=== PATIENT | female | born 1990 | race Caucasian/White ===

== ENCOUNTER 2017-06-25 00:03 | Outpatient (CLI) | payer OTHER ==
[~2017-06-25] VITALS: Ht 167.6 cm; Wt 97.5 kg
== END 2017-06-25 13:00 | disposition designated cancer center or children's hospital (05) ==
LOC: ER 00:03 → LDR 04:44 → ER 04:44 → OB/GYN 04:44 → OBS/DEL 07:00 → OB/GYN 08:05 → LDR 08:05 → OB/GYN 08:05 → EDSTATUS 12:10 → OBS/DEL 13:00 → OB/GYN 19:06
DX: O46.8X2 Other antepartum hemorrhage, second trimester (principal); Z34.82 Encounter for supervision of other normal pregnancy, second trimester

== ENCOUNTER → 2017-11-24 | Outpatient (CLI) | payer OTHER | END | disposition home or self-care (01) | LOC: NST 22:04 | DX: Z34.83 Encounter for supervision of other normal pregnancy, third trimester (principal) ==

== ENCOUNTER 2017-12-10 13:00 | Inpatient (IN) | payer OTHER ==
[~2017-12-10] VITALS: Ht 167.6 cm; Wt 108.9 kg
[2017-12-17] MEDS ORDERED: PRENATAL FORMU1 EAC1 PO (14:19)
[2017-12-17] MEDS ORDERED: IRON325 MG PO (14:19)
== END 2017-12-19 15:10 | disposition home or self-care (01) | DRG 775 ==
LOC: OB/GYN 12-17 12:07 → LDR 12-17 12:07 → OB/GYN 12-18 06:40
PROC: 10E0XZZ Delivery of Products of Conception, External Approach (ICD-10-PCS; principal; 2017-12-17)
PROC: 0HQ9XZZ Repair Perineum Skin, External Approach (ICD-10-PCS; 2017-12-17)
PROC: 3E033VJ Introduction of Other Hormone into Peripheral Vein, Percutaneous Approach (ICD-10-PCS; 2017-12-17)
PROC: 4A1HXCZ Monitoring of Products of Conception, Cardiac Rate, External Approach (ICD-10-PCS; 2017-12-17)
DX: O70.0 First degree perineal laceration during delivery (principal); O99.824 Streptococcus B carrier state complicating childbirth; Z3A.38 38 weeks gestation of pregnancy; Z37.0 Single live birth

== ENCOUNTER 2021-10-04 22:26 | Emergency (ER) | payer OTHER ==
[~2021-10-04] VITALS: Ht 167.6 cm; Wt 108.9 kg
[~2021-10-04 22:26] MED LIST: IRON325 MG PO; PRENATAL FORMU1 EAC1 PO
[2021-10-05] MEDS ORDERED: INTEGRA PLUS C1 EACH PO (04:43)
== END 2021-10-05 04:55 ==
LOC: ER 22:26
DX: N94.6 Dysmenorrhea, unspecified (principal)